=== PATIENT | female | born 1950 | race Caucasian/White ===

== ENCOUNTER → 2017-05-09 | Outpatient (CLI) | payer BC, MEDICARE, OTHER ==
--- NOTE | 2017-05-09 10:06 | US ---
EXAM DESCRIPTION: Breast,Right: Ultrasound CLINICAL HISTORY: 66 yearsFemaleABN MAMMO COMPARISON: Digital 2-D diagnostic mammogram and targeted ultrasound right breast outside imaging facility, March 26, 2017. TECHNIQUE: Transcutaneous scanning of the upper anterior right breast utilizing two-dimensional and Doppler modes. Scanning performed by the certified nursing attendant and Dr. Holcomb. Dr. Childress was also present for the examination. FINDINGS: Scanning at the 1200 clock position of the right breast in the anterior third. Irregular clusters of echogenic calcifications are noted with marked posterior acoustic shadowing. Separate clusters of calcifications cannot be identified. No discrete soft tissue mass or cyst abutting the calcifications. No parenchymal edema. IMPRESSION: BI-RADS CATEGORY: 3 - PROBABLY BENIGN. Management: Short interval (6-month) follow-up digital diagnostic right breast mammography and continued targeted right breast ultrasound surveillance. The FINDINGS and the follow-up plan were reviewed in person with the patient after the examination. Written communication explaining the IMPRESSION and follow-up will be mailed to the patient and referring care provider. Electronically signed by: Yuan Holcomb MD 05/09/2017 10:05 AM [facility]
== END | disposition home or self-care (01) ==
LOC: US 08:01
PROVIDERS: ATTEND Surgery
DX: R92.8 Other abnormal and inconclusive findings on diagnostic imaging of breast (principal)

== ENCOUNTER → 2017-10-31 | Outpatient (CLI) | payer MEDICARE ==
--- NOTE | 2017-10-31 11:24 | US ---
EXAM DESCRIPTION: Breast,Right: Ultrasound CLINICAL HISTORY: 67 yearsFemale6 MONTH FOLLOW UP COMPARISON: Digital 3-D tomosynthesis right breast on this visit and prior targeted right breast ultrasound 05/09/2017. TECHNIQUE: Transcutaneous scanning of the right breast utilizing little-scale and Doppler modes. Scanning performed by the laborer steel handling and Dr. Holcomb. FINDINGS: Limited study due to shadowing from large groups of calcifications. Scanning of the right breast 1200-100 clock position, 4 cm from the nipple. Slightly hypoechoic tissue abutting the calcifications is interpreted to represent the mass density previously described. There may be a small 2.5 mm cyst. Otherwise stable appearance since the prior study. IMPRESSION: 1. Bi-Rads Category 3: Probably Benign Findings. 2. Please refer to diagnostic right breast 3-D tomosynthesis mammogram and report on this visit. The FINDINGS and the FOLLOW-UP plan were reviewed in person with the patient after the examination. Written communication explaining the IMPRESSION and FOLLOW-UP will be mailed to the patient and referring care provider. Electronically signed by: Yuan Holcomb MD 10/31/2017 11:22 AM CDT
--- NOTE | 2017-10-31 11:25 | MAM ---
EXAM DESCRIPTION: 3D Diagnostic, Right: Digital Mammography CLINICAL HISTORY: 67 yearsFemaleABN MAMMO . Delayed Six-month follow-up. 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 COMPARISON: 2-D digital screening bilateral mammography 02/26/2017.. Diagnostic digital right breast mammography and targeted right breast ultrasound 03/15/2017. Targeted right breast ultrasound 05/09/2017. Reports from prior examinations also reviewed. TECHNIQUE: Right breast CC LM MLO projection full-field images, 3-D tomosynthesis digital mammographic technique. CAD not utilized. FINDINGS: The breast parenchymal density pattern is: Scattered areas of fibroglandular density. No skin thickening or nipple retraction 2 groups of large coarse and heterogeneous calcifications in the middle third of the right breast abutting the posterior nipple line. These are associated with a soft tissue mass with minimal calcification between the 2 groups. There are also other solitary calcifications in the right breast. The calcifications in the associated mass density appears stable since the prior studies. Ultrasound: Limited study due to shadowing from large groups of calcifications. Scanning of the right breast 1200-100 clock position, 4 cm from the nipple. Slightly hypoechoic tissue abutting the calcifications is interpreted to represent the mass density previously described. There may be a small 2.5 mm cyst. Otherwise stable appearance since the prior study. IMPRESSION: BI-RADS CATEGORY: 3 - PROBABLY BENIGN. Management: Short interval (February 2018) follow-up targeted right breast ultrasound and diagnostic digital mammography right breast with routine 12 month digital mammography of the left breast. The FINDINGS and the FOLLOW-UP plan were reviewed in person with the patient after the examination. Written communication explaining the IMPRESSION and FOLLOW-UP will be mailed to the patient and referring care provider. Electronically signed by: Yuan Holcomb MD 10/31/2017 11:23 AM CDT
== END ==
LOC: MAMMO 09:24
PROVIDERS: ATTEND Surgery
DX: N63.10 Unspecified lump in the right breast, unspecified quadrant (principal); R92.1 Mammographic calcification found on diagnostic imaging of breast
CPT/HCPCS: 76641; 77065; G0279

== ENCOUNTER → 2018-05-16 | Outpatient (CLI) | payer MEDICARE ==
--- NOTE | 2018-05-17 15:43 | MAM ---
EXAM DESCRIPTION: 3D Diagnostic, Bilateral: Digital Mammography CLINICAL HISTORY: 67 yearsFemaleMASS follow-up of calcifications and mass density right breast. Sister with breast cancer. No personal history of breast cancer. Childbirth. Postmenopausal 39 years. No HRT. Bilateral breast reduction. Lifetime risk of developing breast cancer (Tyrer-Cuzick model) percentage is 9.7%. COMPARISON: Right breast diagnostic digital tomosynthesis 10/31/2017. Right breast ultrasound 10/31/2017. Bilateral screening 2-D breast mammography 02/26/2017. No targeted right breast ultrasound today.. TECHNIQUE: Bilateral CC LM MLO projection full-field images, digital mammographic tomosynthesis technique. Bilateral 2-D digital full-field MLO images. CAD not utilized. FINDINGS: The breast parenchymal density pattern is: Scattered areas of fibroglandular density. No skin thickening or nipple retraction given noted are large coarse calcifications in the middle third of the central right breast around the posterior nipple line. During these calcifications is a soft tissue mass somewhat radiolucent centrally most likely a lymph node, best seen on the CC images. Dense scar tissue extends outwards from the calcifications are also anteriorly from the nipple and posteriorly toward the chest wall. Stable appearance. Other coarse calcifications are seen bilaterally. These are less dense and less numerous in a similar location in the left breast with no soft tissue mass. The MLO image of the left breast shows cardiac pacemaker partially obscuring the posterior third of the left breast in the pectoral muscle. Left breast calcifications are also stable. Cystlike areas are noted near the calcifications in the left breast consistent with fat necrosis. Stable since the prior study. No new focal, stellate mass or density, focal asymmetry , and no suspicious microcalcifications bilaterally. Stable mammograms compared to prior study, taking into account differences in mammographic technique IMPRESSION: Benign exam. BIRAD CATEGORY: 2 BENIGN FINDINGS. RECOMMENDATIONS: FOLLOW UP: Routine digital bilateral mammographic screening, one year interval from May 2018. Written communication explaining the IMPRESSION and follow-up, will be mailed to the patient and referring health care provider. According to the [employer], yearly mammograms are recommended starting at age 40 and continuing as long as a woman is in good health. Any breast change noted on a breast self-exam should be reported promptly to the patient's healthcare provider. Breast MRI is recommended for women with an approximately 20-25% or greater lifetime risk of breast cancer, including women with a strong family history of breast or ovarian cancer and women who have been treated for Hodgkin's disease. A negative mammographic report should not delay tissue diagnosis in patients with significant clinical history or physical findings. Extremely dense breast tissue limits the sensitivity of digital mammography. Electronically signed by: Yuan Holcomb MD 05/17/2018 3:[address] [facility]
== END ==
LOC: US 10:11
PROVIDERS: ATTEND Surgery
DX: N63.10 Unspecified lump in the right breast, unspecified quadrant (principal)
CPT/HCPCS: 77066; G0279

== ENCOUNTER → 2020-05-28 | Outpatient (CLI) | payer MEDICARE ==
--- NOTE | 2020-05-30 06:39 | RAD ---
EXAM DESCRIPTION: Knee,Right Complete CLINICAL HISTORY: 69 years Female, PAIN IN RIGHT KNEE COMPARISON: None. Findings: 3 views/radiographs Location: Right knee No acute fracture or dislocation. Moderate right knee osteoarthritis. Osteopenia. No significant joint effusion. IMPRESSION: No evidence of acute process in the right knee. Electronically signed by: Sebastian Pedersen MD 05/30/2020 6:37 AM [employer]
--- NOTE | 2020-05-30 06:39 | RAD ---
EXAM DESCRIPTION: Pelvis CLINICAL HISTORY: 69 years Female, PAIN IN RIGHT HIP COMPARISON: None. Findings: One view(s)/radiograph(s) No acute fracture or dislocation. No focal soft tissue swelling. Osteopenia. Moderate left and mild right hip osteoarthritis. Symmetric degenerative changes in the sacroiliac joints. IMPRESSION: No acute osseous abnormality in the pelvis. Electronically signed by: Sebastian Pedersen MD 05/30/2020 6:38 AM [facility]
== END ==
LOC: RAD 11:16
PROVIDERS: ATTEND Orthopaedic Surgery
DX: M25.551 Pain in right hip (principal); M25.561 Pain in right knee